=== PATIENT | male | born 1965 | race Caucasian/White ===

== ENCOUNTER 2020-03-19 06:26 | Emergency (ER) | payer BC, OTHER ==
[2020-03-19] MEDS ORDERED: Sodium Chloride 0.9% 1,000 ML IV ONE (06:48)
[2020-03-19] MEDS ORDERED: Ketorolac 30 MG/ML SDV IVPUSH ONE (06:48)
[2020-03-19] MEDS ORDERED: Sodium Chloride 0.9% 10 ML Syringe FLUSH PRN (06:48)
--- NOTE | 2020-03-19 07:53 | EDM.PDOC ---
ED HPI GENERAL MEDICAL PROBLEM - General Chief Complaint: Abdominal Pain Stated Complaint: ABDOMINAL PAIN Time Seen by Provider: 03/19/20 06:30 Source of Information: Reports: Patient History Limitations: Reports: No Limitations - History of Present Illness INITIAL COMMENTS - FREE TEXT/NARRATIVE: pt comes in with c/o epigastric dull pain radiating to entire side of right abd and some to his back , started at 3 am, report nausea, denies emesis, fever, chills, any urinary sx or any other associated sx or concerns, pt had a BM this morning and denies constipation or diarrhea. pt denies hx of abd surgeries , report Hx of HTN and DM. R abdomen radiating into flank Pain Score (Numeric/FACES): 8 - Related Data Allergies Allergy/AdvReac Type Severity Reaction Status Date / Time No Known Allergies Allergy Verified 03/19/20 06:47 Home Meds: Home Meds Acetaminophen/HYDROcodone [Hazel Hurst 325-5 MG] 1 tab PO Q6H PRN 03/19/20 [History] Cyclobenzaprine [Flexeril] 10 mg PO BID PRN 03/19/20 [History] Lisinopril/Hydrochlorothiazide [Lisinopril-Hctz 20-25 mg Tab] 2 each PO DAILY 03/19/20 [History] Metoprolol Succinate [Toprol XL] 25 mg PO DAILY 03/19/20 [History] atorvaSTATin Calcium [Lipitor] 40 mg PO DAILY 03/19/20 [History] metFORMIN [Glucophage] 500 mg PO BIDMEALS 03/19/20 [History] oxyCODONE 5 mg PO Q6H PRN 03/19/20 [History] Past Medical History HEENT History: Reports: Sinusitis Cardiovascular History: Reports: High Cholesterol, Hypertension Musculoskeletal History: Reports: Arthritis, Back Pain, Chronic, Fracture, Neck Pain, Chronic Other Musculoskeletal History: hx fx nose, fingers & toes Neurological History: Reports: CVA Other Neuro History: mild CVA in past Endocrine/Metabolic History: Reports: Diabetes, Type II, Obesity/BMI 30+ - Infectious Disease History Infectious Disease History: Reports: Chicken Pox - Past Surgical History HEENT Surgical History: Reports: Adenoidectomy, Tonsillectomy GI Surgical History: Reports: Colonoscopy Neurological Surgical History: Reports: Other (See Below) Other Neurological Surgeries/Procedures: neck fusion Musculoskeletal Surgical History: Reports: Other (See Below) Other Musculoskeletal Surgeries/Procedures:: recent neck fusion Social & Family History - Family History Family Medical History: No Pertinent Family History - Tobacco Use Tobacco Use Status *Q: Former Tobacco User Used Tobacco, but Quit: Yes Month/Year Tobacco Last Used: 2019 - Caffeine Use Caffeine Use: Reports: Coffee, Soda - Alcohol Use Days Per Week of Alcohol Use: 2 Number of Drinks Per Day: 6 Total Drinks Per Week: 12 - Recreational Drug Use Recreational Drug Use: No ED ROS GENERAL - Review of Systems Review Of Systems: See Below Constitutional: Reports: No Symptoms HEENT: Reports: No Symptoms Respiratory: Reports: No Symptoms Cardiovascular: Reports: No Symptoms GI/Abdominal: Reports: Abdominal Pain, Anorexia, Nausea. Denies: Black Stool, Bloody Stool, Constipation, Diarrhea, Distension, Vomiting Musculoskeletal: Reports: No Symptoms Skin: Reports: No Symptoms Neurological: Reports: No Symptoms Psychiatric: Reports: No Symptoms ED EXAM, GENERAL - Physical Exam Exam: See Below Exam Limited By: No Limitations General Appearance: Alert, Moderate Distress Eye Exam: Bilateral Eye: Normal Inspection Nose: Normal Inspection Throat/Mouth: Normal Oropharynx Head: Atraumatic, Normocephalic Neck: Normal Inspection Respiratory/Chest: No Respiratory Distress, Lungs Clear, Normal Breath Sounds Cardiovascular: Normal Peripheral Pulses, Regular Rate, Rhythm GI/Abdominal: Soft Extremities: Normal Inspection, Normal Range of Motion Neurological: Alert, Oriented, CN II-XII Intact, No Motor/Sensory Deficits Skin Exam: Warm Course - Vital Signs Text/Narrative:: labs / CT and US results were explained to pt. pt is comfortable after toradol / almost asymptomatic. Dr Lafleur was consulted and visited with pt, the plan is to proceed with surgery early this week . pt will e sent home for now with supportive mng / analgesics were prescribed. Dx acute cholecystitis. plan , surgery per Dr Lafleur as outpatient. Last Recorded V/S: Last Vital Signs Temp 36.4 C 03/19/20 10:07 Pulse 70 03/19/20 10:07 Resp 18 03/19/20 10:07 BP 179/96 H 03/19/20 10:07 Pulse Ox 100 03/19/20 10:07 - Orders/Labs/Meds Orders: Active Orders 24 hr Category Date Time Status Abdomen Ltd [US] Stat Exams 03/19/20 11:30 Taken Abdomen Pelvis w Cont [CT] Stat Exams 03/19/20 07:53 Taken Sodium Chloride 0.9% [Saline Flush] Med 03/19/20 06:48 Active 10 ml FLUSH ASDIRECTED PRN Peripheral IV Insertion Adult [OM.PC] Routine Oth 03/19/20 06:48 Ordered Medication Orders Sodium Chloride (Saline Flush) 10 ml FLUSH ASDIRECTED PRN PRN Reason: Keep Vein Open Labs: Laboratory Tests 03/19/20 03/19/20 03/19/20 Range/Units 06:40 06:40 06:40 WBC 7.6 (3.2-10.1) x10-3/uL RBC 4.58 (3.90-5.90) x10(6)uL Hgb 13.6 (12.9-17.7) g/dL Hct 41.4 (38.3-50.1) % MCV 90.4 (80.8-98.7) fL MCH 29.8 (27.0-33.3) pg MCHC 33.0 (28.7-35.3) g/dL RDW 14.1 (12.4-15.0) % Plt Count 180 (117-477) x10(3)uL MPV 8.4 (6.7-11.0) fL Neut % (Auto) 70.3 (40.3-71.8) % Lymph % (Auto) 20.0 (15.8-45.3) % [place] % (Auto) 6.9 (5.5-15.2) % Eos % (Auto) 2.0 (0.1-6.8) % Baso % (Auto) 0.8 (0.3-3.8) % Neut # (Auto) 5.3 (1.7-6.9) x10-3/uL Lymph # (Auto) 1.5 (0.5-4.5) x10-3/uL [place] # (Auto) 0.5 (0.0-1.2) x10-3/uL Eos # (Auto) 0.2 (0.0-0.6) x10-3/uL Baso # (Auto) 0.1 (0.0-0.3) x10-3/uL Sodium 138 (135-145) mmol/L Potassium 4.8 (3.5-5.3) mmol/L Chloride 101 (100-110) mmol/L Carbon Dioxide 26 (21-32) mmol/L BUN 23 H (7-18) mg/dL Creatinine 0.9 (0.70-1.30) mg/dL Est Cr Clr Drug Dosing 127.25 mL/min Estimated GFR (MDRD) > 60 (>60) BUN/Creatinine Ratio 25.6 H (9-20) Glucose 175 H (80-116) mg/dL Calcium 8.6 (8.6-10.2) mg/dL Total Bilirubin 0.2 (0.1-1.3) mg/dL AST 30 H (5-25) IU/L ALT 36 (12-36) U/L Alkaline Phosphatase 65 (56-112) IU/L Total Protein 7.7 (6.0-8.0) g/dL Albumin 3.7 (3.5-5.2) g/dL Globulin 4.0 g/dL Albumin/Globulin Ratio 0.9 Amylase 49 (25-115) U/L Lipase (73-393) U/L Urine Color (YELLOW) Urine Appearance (CLEAR) Urine pH (5.0-6.5) Ur Specific [place] (1.010-1.025) Urine Protein (NEGATIVE) mg/dL Urine Glucose (UA) (NORMAL) mg/dL Urine Ketones (NEGATIVE) mg/dL Urine Occult Blood (NEGATIVE) Urine Nitrite (NEGATIVE) Urine Bilirubin (NEGATIVE) Urine Urobilinogen (NEGATIVE) mg/dL Ur Leukocyte Esterase (NEGATIVE) Urine RBC (0-5) Urine WBC (0-5) Ur Squamous Epith Cells (NS,R,O) Urine Bacteria (NS) 03/19/20 03/19/20 Range/Units 06:40 06:50 WBC (3.2-10.1) x10-3/uL RBC (3.90-5.90) x10(6)uL Hgb (12.9-17.7) g/dL Hct (38.3-50.1) % MCV (80.8-98.7) fL MCH (27.0-33.3) pg MCHC (28.7-35.3) g/dL RDW (12.4-15.0) % Plt Count (117-477) x10(3)uL MPV (6.7-11.0) fL Neut % (Auto) (40.3-71.8) % Lymph % (Auto) (15.8-45.3) % [place] % (Auto) (5.5-15.2) % Eos % (Auto) (0.1-6.8) % Baso % (Auto) (0.3-3.8) % Neut # (Auto) (1.7-6.9) x10-3/uL Lymph # (Auto) (0.5-4.5) x10-3/uL [place] # (Auto) (0.0-1.2) x10-3/uL Eos # (Auto) (0.0-0.6) x10-3/uL Baso # (Auto) (0.0-0.3) x10-3/uL Sodium (135-145) mmol/L Potassium (3.5-5.3) mmol/L Chloride (100-110) mmol/L Carbon Dioxide (21-32) mmol/L BUN (7-18) mg/dL Creatinine (0.70-1.30) mg/dL Est Cr Clr Drug Dosing mL/min Estimated GFR (MDRD) (>60) BUN/Creatinine Ratio (9-20) Glucose (80-116) mg/dL Calcium (8.6-10.2) mg/dL Total Bilirubin (0.1-1.3) mg/dL AST (5-25) IU/L ALT (12-36) U/L Alkaline Phosphatase (56-112) IU/L Total Protein (6.0-8.0) g/dL Albumin (3.5-5.2) g/dL Globulin g/dL Albumin/Globulin Ratio Amylase (25-115) U/L Lipase 152 (73-393) U/L Urine Color Yellow (YELLOW) Urine Appearance Clear (CLEAR) Urine pH 6.0 (5.0-6.5) Ur Specific [place] 1.020 (1.010-1.025) Urine Protein Negative (NEGATIVE) mg/dL Urine Glucose (UA) 50 H (NORMAL) mg/dL Urine Ketones 15 H (NEGATIVE) mg/dL Urine Occult Blood Negative (NEGATIVE) Urine Nitrite Negative (NEGATIVE) Urine Bilirubin Negative (NEGATIVE) Urine Urobilinogen Normal (NEGATIVE) mg/dL Ur Leukocyte Esterase Negative (NEGATIVE) Urine RBC 0-5 (0-5) Urine WBC 0-5 (0-5) Ur Squamous Epith Cells Rare (NS,R,O) Urine Bacteria Rare H (NS) Meds: Medications Generic Name Dose Route Start Last Admin Trade Name Freq PRN Reason Stop Dose Admin Sodium Chloride 10 ml 03/19/20 06:48 Saline Flush FLUSH ASDIRECTED PRN Keep Vein Open Discontinued Medications Generic Name Dose Route Start Last Admin Trade Name Freq PRN Reason Stop Dose Admin Diatrizoate Meglum/Diatrizoate Sod 30 ml 03/19/20 08:15 03/19/20 09:51 Gastrografin 37% PO 03/19/20 08:16 30 ml . DIRECTED ONE Administration Sodium Chloride 1,000 mls @ 999 mls/hr 03/19/20 06:48 03/19/20 06:50 Normal Saline IV 03/19/20 07:48 999 mls/hr .BOLUS ONE Administration Iopamidol 100 ml 03/19/20 08:15 03/19/20 09:51 Isovue-370 (76%) IV 03/19/20 08:16 100 ml . DIRECTED ONE Administration Ketorolac Tromethamine 30 mg 03/19/20 06:48 03/19/20 06:50 Toradol IVPUSH 03/19/20 06:49 30 mg ONETIME ONE Administration Departure - Departure Time of Disposition: 14:27 Disposition: Home, Self-Care 01 Clinical Impression: Acute cholecystitis - Discharge Information Referrals: Edith Arroyo [employer] OPERATOR [Primary Care Provider] - Forms: ED Department Discharge Sepsis Event Note (ED) - Evaluation Sepsis Screening Result: No Definite Risk - Focused Exam Vital Signs: Vital Signs Temp Temp Pulse Resp BP BP Pulse Ox 03/19/20 10:07 36.4 C 70 18 179/96 H 100 03/19/20 07:30 77 18 163/105 H 100 03/19/20 06:30 35.6 C L 71 20 171/120 H 100 - My Orders Last 24 Hours: My Active Orders 03/19/20 06:48 Sodium Chloride 0.9% [Saline Flush] 10 ml FLUSH ASDIRECTED PRN Peripheral IV Insertion Adult [OM.PC] Routine 03/19/20 07:53 Abdomen Pelvis w Cont [CT] Stat 03/19/20 11:30 Abdomen Ltd [US] Stat - Assessment/Plan Last 24 Hours: My Active Orders 03/19/20 06:48 Sodium Chloride 0.9% [Saline Flush] 10 ml FLUSH ASDIRECTED PRN Peripheral IV Insertion Adult [OM.PC] Routine 03/19/20 07:53 Abdomen Pelvis w Cont [CT] Stat 03/19/20 11:30 Abdomen Ltd [US] Stat
[2020-03-19] MEDS ORDERED: Diatrizoate Meglumine/Diatrizoate Sodium 37% 30 ML Bottle PO ONE (08:15)
[2020-03-19] MEDS ORDERED: Iopamidol 755 Mg/ML 100 ML Bottle IV ONE (08:15)
--- NOTE | 2020-03-19 16:27 | ER ---
DATE SEEN: 03/19/2020 HISTORY: This patient is seen in the emergency room for evaluation of abdominal pain that began early this morning. His pain was a 10 on a 10 and brought him to the emergency room. He is now feeling back to normal and denies any pain at this time. His pain was mostly on the right side with some radiation into the flank region. This was associated with nausea but no vomiting. In the emergency room, he has been evaluated with CT scan and ultrasound. This shows cholelithiasis with an enlarged gallbladder on CT scan and evidence of cholecystitis with wall thickening and pericholecystic fluid on the ultrasound. Common bile duct is normal in size. His labs are reviewed. WBC is normal. Chemistry profile is essentially normal and liver function tests are normal with a normal bilirubin. The patient has received Toradol, which has completely alleviated the pain. The patient has not had any symptoms like this in the past. He does have some diffuse abdominal pain at times but not as severe as this. Last night, he had [place], potato chips, and crab salad before he went to bed, which is likely the reason his symptoms were so severe today. PAST MEDICAL HISTORY: Reviewed. He did have a cervical fusion for disk problems a couple of months ago and is recovering well from this. He does have good range of motion in his neck at this time. He is also treated for hypertension and hyperlipidemia. Past medical history is otherwise noncontributory. PHYSICAL EXAMINATION: GENERAL: Reveals a pleasant gentleman in no acute distress. VITAL SIGNS: Vitals are reviewed and within normal limits. He is afebrile. HEENT: His sclerae are white. SKIN: Not jaundiced. RESPIRATORY: Lungs are clear. Respirations are nonlabored. HEART: Regular in rate and rhythm without murmur. ABDOMEN: Soft and nontender. There are no masses or hernias palpable. ASSESSMENT: Cholecystitis and cholelithiasis. PLAN: Findings were reviewed with the patient, and he should have his gallbladder removed in the near future. This will be done early next week. I will place him on Cipro 500 twice a day in the meantime. He does have a few hydrocodone left from his neck surgery if pain worsens. We have discussed the procedure as well as the risks and complications of bleeding, infection, anesthesia, bile leakage, bile duct injury, and needing to convert to an open procedure. Informed consent was obtained. /[id number] NEREYDA/MAYANK
== END 2020-03-19 14:44 | disposition home or self-care (01) ==
LOC: FB.ED 06:26
DX: K80.10 Calculus of gallbladder with chronic cholecystitis without obstruction (principal); I10 Essential (primary) hypertension; Z79.899 Other long term (current) drug therapy
CPT/HCPCS: 36415; 74177; 76705; 80053; 81001; 82150; 83690; 85025; 96374; 99283; 99284; J1885; J7030; Q9963; Q9967

== ENCOUNTER 2020-03-22 09:41 | Day surgery (SDC) | payer BC ==
[~2020-03-22 09:41] MED LIST: Lactated Ringers 1,000 ML IV SCH; Sodium Chloride 0.9% 10 ML Syringe FLUSH PRN
[2020-03-22] MEDS ORDERED: fentaNYL 100 MCG/2 ML SDV IV ONE (09:42)
[2020-03-22] MEDS ORDERED: Succinylcholine 200 MG/10 ML MDV IV ONE (09:42)
[2020-03-22] MEDS ORDERED: Lidocaine 2% 100 MG/5 ML Syringe IVPUSH ONE (09:42)
[2020-03-22] MEDS ORDERED: Rocuronium 100 MG/10 ML MDV IV ONE (09:42)
[2020-03-22] MEDS ORDERED: Ondansetron 4 MG/2 ML SDV IVPUSH ONE (09:42)
[2020-03-22] MEDS ORDERED: Midazolam 1 MG/ML 2 ML SDV IV ONE (09:42)
[2020-03-22] MEDS ORDERED: Labetalol 100 MG/20 ML MDV IV ONE (09:42)
[2020-03-22] MEDS ORDERED: Propofol 200 MG/20 ML SDV IV ONE (09:42)
[2020-03-22] MEDS ORDERED: Glycopyrrolate 0.2 MG/ML 5 ML MDV IV ONE (09:42)
[2020-03-22] MEDS ORDERED: HYDROmorphone 2 MG/ML SDV IV ONE (09:42)
[2020-03-22] MEDS ORDERED: Lactated Ringers 1,000 ML IV ONE (09:42)
[2020-03-22] MEDS ORDERED: Dexamethasone 4 MG/ML 5 ML MDV IVPUSH ONE (09:42)
[2020-03-22] MEDS ORDERED: Neostigmine Methylsulfate 10 MG/10 ML MDV IVPUSH ONE (09:42)
--- NOTE | 2020-03-22 11:28 | PCM.HPR ---
H & P Addendum review - H & P Addendum Review Date of Original H & P: 03/19/20 Date Reviewed: 03/22/20 Time Reviewed: 11:28 Patient was Examined: No Changes
--- NOTE | 2020-03-22 13:05 | PCM.OPNOTE ---
- General Post-Op/Procedure Note Date of Surgery/Procedure: 03/22/20 Operative Procedure(s): Lap Jackelin Findings: Chronic Cholecystitis and Cholelithiasis Pre Op Diagnosis: Cholecystitis and Cholelithiasis Post-Op Diagnosis: Same Anesthesia Technique: General ET Tube Primary Surgeon: Jake Lafleur Pathology: GB EBL in mLs: 100 Complications: None Condition: Good
[2020-03-22] MEDS ORDERED: Morphine 2 MG/ML SYRINGE IVPUSH PRN (13:15)
[2020-03-22] MEDS ORDERED: Acetaminophen/HYDROcodone 325-5 MG Tab PO PRN (13:15)
--- NOTE | 2020-03-23 16:59 | OR ---
DATE OF OPERATION: 03/22/2020 SURGEON: Jake Lafleur MD PREOPERATIVE DIAGNOSIS: Cholecystitis and cholelithiasis. POSTOPERATIVE DIAGNOSIS: Cholecystitis and cholelithiasis. PROCEDURE: Laparoscopic cholecystectomy. ANESTHESIA: General. PROCEDURE IN DETAIL: Patient was brought to the operating room, where general endotracheal anesthesia was administered. The abdomen was clipped, prepped with ChloraPrep and draped sterilely. An infraumbilical incision was made and extended into the peritoneal cavity without difficulty. The [place] cannula was introduced and pneumoperitoneum obtained. The remaining three 5 mm ports were placed in the usual positions. The patient was placed in reverse Trendelenburg position and rotated to the left. The omentum was completely covering the right lobe of the liver and adhered to the gallbladder and the liver surrounding the gallbladder. This was taken down with hook electrocautery to expose the gallbladder, which was then grasped and retracted cephalad. Once the omentum was completely cleared off the gallbladder, the neck of the gallbladder was quite deep and the peritoneum stripped off this. Cystic duct and cystic artery were dissected free with minimal difficulty. A large cystic duct node was present adhered to the gallbladder. Once the anatomy was clearly defined, I placed 2 clips on the cystic artery proximally and 2 more distally and then 2 more on the adjacent branch. The cystic artery was then transected. This aided in visualization and I was able to clearly identify the lower third of the gallbladder and the cystic duct. Cystic duct was milked back into the gallbladder, then doubly clipped proximally and once distally and then transected. The gallbladder was then removed from the bed of the liver with some difficulty because of large stones impacted in the neck making it difficult to work around the gallbladder. I was eventually able to completely free this up from the bed of the liver without any bile leakage or significant bleeding. There was some oozing throughout the procedure. I did place some clips on the posterior branch of the cystic artery as I was removing the gallbladder from the liver bed. Once the gallbladder was completely freed up, was brought out part way through the umbilical incision and required opening and removal of several large stones and crushing them. Once the gallbladder was removed, I reinspected the right upper quadrant and a total of 1 L of irrigation was used to make sure that hemostasis was assured and all clips were in place. Ports were removed under direct vision and remained hemostatic. Umbilical fascia was closed with [id number] #0 Vicryl. The skin was closed with #4-0 Vicryl subcuticular sutures. Benzoin and Steri-Strips were placed and Band-Aids applied. The patient tolerated the procedure well. Estimated blood loss was 100 mL. He returned to postanesthesia in stable condition. /[id number] NEREYDA/MAYANK
== END 2020-03-22 15:35 | disposition home or self-care (01) ==
LOC: FB.SDS 09:41
PROVIDERS: ATTEND Surgery
DX: K80.10 Calculus of gallbladder with chronic cholecystitis without obstruction (principal); E11.42 Type 2 diabetes mellitus with diabetic polyneuropathy; I10 Essential (primary) hypertension; N52.9 Male erectile dysfunction, unspecified; L03.90 Cellulitis, unspecified; Z01.812 Encounter for preprocedural laboratory examination; Z20.828 Contact with and (suspected) exposure to other viral communicable diseases; Z87.891 Personal history of nicotine dependence; Z79.899 Other long term (current) drug therapy
CPT/HCPCS: 00790; 47562; 82962; 87635; 88304; A9270; J0330; J1100; J1170; J2001; J2250; J2405; J2704; J2710; J3010; J3490; J7120; U0002